=== PATIENT | female | born 2000 | race African-American/Black ===

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

== ENCOUNTER 2020-03-10 18:02 | Emergency (ER) | payer OTHER, SELFPAY ==
[2020-03-10] MEDS ORDERED: Ibuprofen 800 MG TAB ONE (19:38)
== END 2020-03-10 19:08 | disposition home or self-care (01) ==
LOC: ERS 18:02
DX: S80.01XA Contusion of right knee, initial encounter (principal); S30.0XXA Contusion of lower back and pelvis, initial encounter; F90.9 Attention-deficit hyperactivity disorder, unspecified type; F17.290 Nicotine dependence, other tobacco product, uncomplicated; V89.2XXA Person injured in unspecified motor-vehicle accident, traffic, initial encounter
CPT/HCPCS: 99283

== ENCOUNTER 2022-03-06 11:54 | Emergency (ER) | payer SELFPAY ==
[2022-03-06] MEDS ORDERED: Dexamethasone 4 MG TAB ONE (13:30)
== END 2022-03-06 13:02 | disposition home or self-care (01) ==
LOC: EEVIPCON 11:54 → ERS 11:54
DX: R06.2 Wheezing (principal); F17.290 Nicotine dependence, other tobacco product, uncomplicated
CPT/HCPCS: 99284; J7620; J8540

== ENCOUNTER 2023-06-25 23:10 | Emergency (ER) | payer SELFPAY ==
[2023-06-26] MEDS ORDERED: Acetaminophen 500 MG TAB ONE ×2 (00:02)
== END 2023-06-26 00:08 ==
LOC: ERS 23:10
DX: S82.302A Unspecified fracture of lower end of left tibia, initial encounter for closed fracture (principal); S92.152A Displaced avulsion fracture (chip fracture) of left talus, initial encounter for closed fracture; F17.290 Nicotine dependence, other tobacco product, uncomplicated; W18.30XA Fall on same level, unspecified, initial encounter

== ENCOUNTER 2024-01-06 01:04 | Emergency (ER) | payer SELFPAY | END 2024-01-06 02:04 | disposition left against medical advice (07) | LOC: ERS 01:04 | DX: Z53.21 Procedure and treatment not carried out due to patient leaving prior to being seen by health care provider (principal) ==

== ENCOUNTER 2025-09-03 08:05 | Day surgery (SDC) | payer OTHER ==
[2025-09-03] MEDS ORDERED: Acetaminophen 500 MG TAB ONE (08:36)
[2025-09-03] MEDS: Acetaminophen 500 MG TAB PO SCH (08:37)
[2025-09-03 14:05] VITALS: BP 101/55; TEMP 97.9
== END 2025-09-03 14:36 | disposition home or self-care (01) ==
LOC: ONC/OP 08:05
PROVIDERS: ATTEND Family Medicine
DX: O99.013 Anemia complicating pregnancy, third trimester (principal); O99.213 Obesity complicating pregnancy, third trimester; Z3A.00 Weeks of gestation of pregnancy not specified
CPT/HCPCS: 96365; 96366; J1756; J7050